=== PATIENT | female | born 1960 | race Caucasian/White ===

== ENCOUNTER 2018-10-18 05:11 | Inpatient (IN) | payer BC ==
[2018-10-18] MEDS: VANCOMYCIN 1 GM 250 ML IVPB (05:00)
[2018-10-18] MEDS: LACTATED RINGER'S 1,000 ML (ENTER RATE) IV* (05:00)
[2018-10-18 06:08] LABS: INR 0.91; PROTIME 12.4 Sec (11.9-14.9)
[2018-10-18 06:09] LABS: PARTIAL THROMBOPLASTIN TIME 30.2 Sec (23.0-35.0)
[2018-10-18] MEDS ORDERED: SEVOFLURANE 15 MIN (07:00)
[2018-10-18] MEDS ORDERED: METOPROLOL 5 MG INJ (07:00)
[2018-10-18] MEDS ORDERED: MIDAZOLAM 1 MG/ML 2 ML INJ (07:32)
[2018-10-18] MEDS ORDERED: hydrALAzine 20 MG INJ (08:13)
[2018-10-18] MEDS ORDERED: morphine 10 MG INJ (08:18)
[2018-10-18] MEDS: BUPIVACAINE 0.25% (MPF) 30 ML INJ (08:20)
[2018-10-18] MEDS: THROMBIN (BOVINE) 5,000 UNIT VIAL TP (08:46)
[2018-10-18] MEDS: POLYMYXIN/BACITRACIN 1L IRRIG (08:46)
[2018-10-18] MEDS: GELATIN SIZE 100 SPONGE (08:46)
[2018-10-18] MEDS ORDERED: ONDANSETRON 4 MG INJ ×2 (09:44→10:45)
[2018-10-18] MEDS ORDERED: METOCLOPRAMIDE 10 MG INJ (09:44)
[2018-10-18] MEDS ORDERED: LIDOCAINE 2% (SDV) 5 ML INJ ×2 (09:45→09:54)
[2018-10-18] MEDS ORDERED: ROCURONIUM 50 MG INJ ×2 (09:45)
[2018-10-18] MEDS ORDERED: ETOMIDATE 20 MG INJ (09:45)
[2018-10-18] MEDS ORDERED: DEXAMETHASONE 4 MG/ML 5 ML INJ (09:47)
[2018-10-18] MEDS ORDERED: NEOSTIGMINE 3 MG/3 ML SYRINGE (09:56)
[2018-10-18] MEDS ORDERED: GLYCOPYRROLATE 0.4 MG INJ (09:56)
[2018-10-18] MEDS ORDERED: FUROSEMIDE 20 MG INJ (10:14)
[2018-10-18] MEDS: DEXTROSE 5%-0.45% NACL 1,000 ML IV ×4 (10:21→23:58)
[2018-10-18] MEDS ORDERED: DIPHENHYDRAMINE 50 MG INJ ×2 (10:27→10:53)
[2018-10-18] MEDS ORDERED: NACL 0.9% 3 ML SYG IV (10:30)
[2018-10-18] MEDS ORDERED: TRIMETHOBENZAMIDE 100 MG/ML VIAL IM (10:30)
[2018-10-18] MEDS ORDERED: AL HYDROX/MG HYDROX/SIMETH 30 ML CUP PO (10:30)
[2018-10-18] MEDS ORDERED: BETHANECHOL 25 MG TAB PO (10:30)
[2018-10-18] MEDS ORDERED: ONDANSETRON 4 MG INJ IV (10:30)
[2018-10-18] MEDS ORDERED: NALOXONE (0.4 MG/ML) INJ IV (10:30)
[2018-10-18] MEDS ORDERED: PROCHLORPERAZINE 10 MG TAB PO (10:30)
[2018-10-18] MEDS ORDERED: DIPHENHYDRAMINE 50 MG CAP PO (10:30)
[2018-10-18] MEDS ORDERED: ACETAMINOPHEN 325 MG TAB PO (10:30)
[2018-10-18] MEDS ORDERED: FENTAnyl 50 MCG/ML VIAL ×2 (10:45→11:29)
[2018-10-18] MEDS ORDERED: hydrALAzine 20 MG INJ IV (11:00)
[2018-10-18] MEDS ORDERED: MEPERIDINE 25 MG INJ IV (11:00)
[2018-10-18] MEDS ORDERED: ALBUTEROL 0.083% (NEB) 2.5 MG/3 ML AMP HHN (11:00)
[2018-10-18] MEDS ORDERED: LABETALOL HCL 20MG INJ IV (11:00)
[2018-10-18] MEDS ORDERED: METOCLOPRAMIDE 10 MG INJ IV (11:00)
[2018-10-18] MEDS ORDERED: HYDROmorphONE 1 MG/5 ML IV SYRINGE IV ×2 (11:00→11:07)
[2018-10-18] MEDS: DIPHENHYDRAMINE 50 MG INJ IV (11:50)
[2018-10-18] MEDS: HYDROmorphONE 1 MG/5 ML IV SYRINGE IV (11:50)
[2018-10-18] MEDS: FENTAnyl 50 MCG/ML VIAL IV (11:52)
[2018-10-18] MEDS: ONDANSETRON 4 MG INJ IV (11:53)
[2018-10-18] MEDS: HYDROmorphONE 0.2 MG/ML PCA IV ×2 (11:58→19:32)
[2018-10-18] MEDS ORDERED: morphine 1 MG/ML 30 ML (PCA) IV (12:00)
[2018-10-18] MEDS: MIDAZOLAM 1 MG/ML 2 ML INJ IV (12:03)
[2018-10-18] MEDS ORDERED: NON-FORMULARY/PATIENT OWN MED (Temazepam* (Restoril*) 15 MG) PO (13:30)
[2018-10-18] MEDS: OXYCODONE/ACETAMINOPHEN (10/325) TAB PO ×2 (15:52→22:33)
[2018-10-18] MEDS: PREGABALIN 75 MG CAP PO (15:52)
[2018-10-18] MEDS: LORAZEPAM 1 MG TAB PO (18:05)
[2018-10-18] MEDS: VANCOMYCIN 1 GM (PMX) 250 ML IVPB (18:05)
[2018-10-18] MEDS: RANITIDINE 150 MG TAB PO (20:15)
[2018-10-18] MEDS ORDERED: PREGABALIN 75 MG CAP PO (21:00)
[2018-10-18] MEDS: ZOLPIDEM 5 MG TAB PO (23:51)
[2018-10-19] MEDS: PREGABALIN 75 MG CAP PO ×4 (01:00→21:39)
[2018-10-19] MEDS: PANTOPRAZOLE (EC) 40 MG TAB PO (05:05)
[2018-10-19] MEDS: VANCOMYCIN 1 GM (PMX) 250 ML IVPB (05:05)
[2018-10-19] MEDS: OXYCODONE/ACETAMINOPHEN (10/325) TAB PO ×4 (05:06→18:35)
[2018-10-19] MEDS: LORAZEPAM 1 MG TAB PO ×3 (05:19→21:29)
[2018-10-19 05:59] LABS: HEMATOCRIT 30.4 % (37.0-47.0); HEMOGLOBIN 9.3 g/dl (12.0-16.0)
[2018-10-19 06:18] LABS: ANION GAP 8 (5-13); BLOOD UREA NITROGEN 15 mg/dl (7-20); CALCIUM 8.6 mg/dl (8.4-10.2); CARBON DIOXIDE 33 mmol/L (21-31); CHLORIDE 97 mmol/L (97-110); CREATININE 0.86 mg/dl (0.44-1.00); Estimated GFR > 60 mL/min (>60); GLUCOSE 85 mg/dl (70-220); POTASSIUM 3.2 mmol/L (3.5-5.1); SODIUM 138 mmol/L (135-144)
[2018-10-19] MEDS: HYDROmorphONE 0.2 MG/ML PCA IV ×3 (06:36→18:45)
[2018-10-19] MEDS ORDERED: BETHANECHOL 25 MG TAB PO (08:00)
[2018-10-19] MEDS ORDERED: UBIDECARENONE 400 MG PO (09:00)
[2018-10-19] MEDS: DOCUSATE SODIUM 100 MG CAP PO ×2 (09:09→21:28)
[2018-10-19] MEDS: CYANOCOBALAMIN 500 MCG TAB PO (09:12)
[2018-10-19] MEDS: FERROUS SULFATE (EC) 325 MG TAB PO ×3 (09:12→21:28)
[2018-10-19] MEDS: RANITIDINE 150 MG TAB PO ×2 (09:13→21:28)
[2018-10-19] MEDS: ASCORBIC ACID 500 MG TAB PO ×2 (09:14→21:29)
[2018-10-19] MEDS: VITAMIN B COMPLEX/VIT C CAP PO (09:16)
[2018-10-19] MEDS: POTASSIUM CHLORIDE 30 MEQ in SOD CHLORIDE 0.45% 1,000 ML IV ×3 (12:09→21:41)
[2018-10-19] MEDS: DEXTROSE 5%-0.45% NACL 1,000 ML IV (16:21)
[2018-10-19] MEDS: ZOLPIDEM 5 MG TAB PO (23:21)
[2018-10-20] MEDS: DEXTROSE 5%-0.45% NACL 1,000 ML IV ×2 (02:21→12:21)
[2018-10-20 05:14] LABS: ADD MAN DIFF? NO
[2018-10-20 05:15] LABS: BASOPHILS % 0.5 % (0.0-2.0); EOSINOPHILS # 0.3 10^3/ul (0.0-0.5); EOSINOPHILS % 5.3 % (0.0-7.0); HEMOGLOBIN 8.4 g/dl (12.0-16.0); LYMPHOCYTES # 1.6 10^3/ul (0.8-2.9); LYMPHOCYTES % 27.9 % (15.0-51.0); MEAN CORPUSCULAR HEMOGLOBIN 23.1 pg (29.0-33.0); MEAN CORPUSCULAR VOLUME 79.7 fl (82.0-101.0); MEAN PLATELET VOLUME 10.2 fl (7.4-10.4); MONOCYTES % 17.2 % (0.0-11.0); NEUTROPHIL # 2.8 10^3/ul (1.6-7.5); NEUTROPHILS % 48.9 % (39.0-77.0); PLATELET COUNT 174 10^3/UL (140-415); RED BLOOD COUNT 3.64 10^6/ul (4.20-5.40); RED CELL DISTRIBUTION WIDTH 18.5 % (11.5-14.5)
[2018-10-20 05:15] LABS: WHITE BLOOD COUNT 5.8 10^3/ul (4.8-10.8)
[2018-10-20 05:33] LABS: ANION GAP 10 (5-13); BLOOD UREA NITROGEN 9 mg/dl (7-20); CALCIUM 9.1 mg/dl (8.4-10.2); CARBON DIOXIDE 33 mmol/L (21-31); CHLORIDE 98 mmol/L (97-110); CREATININE 0.72 mg/dl (0.44-1.00); Estimated GFR > 60 mL/min (>60); GLUCOSE 86 mg/dl (70-220); POTASSIUM 4.4 mmol/L (3.5-5.1); SODIUM 141 mmol/L (135-144)
[2018-10-20] MEDS: PANTOPRAZOLE (EC) 40 MG TAB PO (05:41)
[2018-10-20] MEDS: POTASSIUM CHLORIDE 30 MEQ in SOD CHLORIDE 0.45% 1,000 ML IV (05:45)
[2018-10-20] MEDS: CEPASTAT LOZENGE MT (05:48)
[2018-10-20] MEDS: OXYCODONE/ACETAMINOPHEN (10/325) TAB PO ×4 (05:48→21:18)
[2018-10-20] MEDS: LORAZEPAM 1 MG TAB PO ×2 (06:51→17:13)
[2018-10-20] MEDS: HYDROmorphONE 0.2 MG/ML PCA IV ×2 (06:53→14:47)
[2018-10-20] MEDS: CYANOCOBALAMIN 500 MCG TAB PO (09:45)
[2018-10-20] MEDS: DOCUSATE SODIUM 100 MG CAP PO ×2 (09:45→20:52)
[2018-10-20] MEDS: VITAMIN B COMPLEX/VIT C CAP PO (09:45)
[2018-10-20] MEDS: FERROUS SULFATE (EC) 325 MG TAB PO ×3 (09:46→20:52)
[2018-10-20] MEDS: ASCORBIC ACID 500 MG TAB PO ×2 (09:46→20:52)
[2018-10-20] MEDS: RANITIDINE 150 MG TAB PO ×2 (09:46→20:52)
[2018-10-20] MEDS: PREGABALIN 75 MG CAP PO ×2 (10:23→20:53)
[2018-10-20] MEDS: POTASSIUM CHLORIDE 30 MEQ in DEXTROSE 5% 1,000 ML IV (17:30)
[2018-10-20] MEDS: ZOLPIDEM 5 MG TAB PO (22:10)
[2018-10-21] MEDS: HYDROmorphONE 0.2 MG/ML PCA IV ×3 (00:26→19:13)
[2018-10-21] MEDS: POTASSIUM CHLORIDE 30 MEQ in DEXTROSE 5% 1,000 ML IV ×3 (00:30→21:44)
[2018-10-21] MEDS: LORAZEPAM 1 MG TAB PO ×3 (02:11→18:18)
[2018-10-21] MEDS: OXYCODONE/ACETAMINOPHEN (10/325) TAB PO ×4 (02:44→21:36)
[2018-10-21 05:11] LABS: ADD MAN DIFF? NO
[2018-10-21 05:16] LABS: BASOPHILS % 0.3 % (0.0-2.0); EOSINOPHILS # 0.6 10^3/ul (0.0-0.5); EOSINOPHILS % 7.2 % (0.0-7.0); HEMATOCRIT 30.2 % (37.0-47.0); HEMOGLOBIN 8.8 g/dl (12.0-16.0); LYMPHOCYTES # 1.5 10^3/ul (0.8-2.9); LYMPHOCYTES % 19.2 % (15.0-51.0); MEAN CORPUSCULAR HEMOGLOBIN 22.8 pg (29.0-33.0); MEAN CORPUSCULAR HGB CONC 29.1 g/dl (32.0-37.0); MEAN CORPUSCULAR VOLUME 78.2 fl (82.0-101.0); MEAN PLATELET VOLUME 10.5 fl (7.4-10.4); MONOCYTES % 13.1 % (0.0-11.0); NEUTROPHIL # 4.7 10^3/ul (1.6-7.5); NEUTROPHILS % 59.8 % (39.0-77.0); PLATELET COUNT 199 10^3/UL (140-415); RED BLOOD COUNT 3.86 10^6/ul (4.20-5.40); RED CELL DISTRIBUTION WIDTH 18.2 % (11.5-14.5)
[2018-10-21 05:16] LABS: WHITE BLOOD COUNT 7.9 10^3/ul (4.8-10.8)
[2018-10-21 05:31] LABS: ANION GAP 7 (5-13); BLOOD UREA NITROGEN 9 mg/dl (7-20); CALCIUM 9.3 mg/dl (8.4-10.2); CARBON DIOXIDE 34 mmol/L (21-31); CHLORIDE 97 mmol/L (97-110); CREATININE 0.69 mg/dl (0.44-1.00); Estimated GFR > 60 mL/min (>60); GLUCOSE 126 mg/dl (70-220); POTASSIUM 4.5 mmol/L (3.5-5.1); SODIUM 138 mmol/L (135-144)
[2018-10-21] MEDS: PANTOPRAZOLE (EC) 40 MG TAB PO (06:41)
[2018-10-21] MEDS: RANITIDINE 150 MG TAB PO ×2 (08:47→21:37)
[2018-10-21] MEDS: VITAMIN B COMPLEX/VIT C CAP PO (08:47)
[2018-10-21] MEDS: DOCUSATE SODIUM 100 MG CAP PO ×2 (08:47→21:37)
[2018-10-21] MEDS: FERROUS SULFATE (EC) 325 MG TAB PO ×3 (08:48→21:37)
[2018-10-21] MEDS: CYANOCOBALAMIN 500 MCG TAB PO (08:48)
[2018-10-21] MEDS: PREGABALIN 75 MG CAP PO ×2 (08:51→21:37)
[2018-10-21] MEDS: ASCORBIC ACID 500 MG TAB PO ×2 (08:51→21:45)
[2018-10-21] MEDS: ZOLPIDEM 5 MG TAB PO (23:39)
[2018-10-22] MEDS: OXYCODONE/ACETAMINOPHEN (10/325) TAB PO ×4 (04:34→23:43)
[2018-10-22 06:18] LABS: HEMATOCRIT 32.4 % (37.0-47.0); HEMOGLOBIN 9.6 g/dl (12.0-16.0)
[2018-10-22] MEDS: PANTOPRAZOLE (EC) 40 MG TAB PO (06:24)
[2018-10-22] MEDS: LORAZEPAM 1 MG TAB PO ×2 (06:24→16:26)
[2018-10-22 07:18] LABS: ANION GAP 7 (5-13); BLOOD UREA NITROGEN 8 mg/dl (7-20); CALCIUM 9.6 mg/dl (8.4-10.2); CARBON DIOXIDE 35 mmol/L (21-31); CHLORIDE 94 mmol/L (97-110); CREATININE 0.68 mg/dl (0.44-1.00); Estimated GFR > 60 mL/min (>60); GLUCOSE 102 mg/dl (70-220); POTASSIUM 4.5 mmol/L (3.5-5.1); SODIUM 136 mmol/L (135-144)
[2018-10-22] MEDS: ASCORBIC ACID 500 MG TAB PO ×2 (08:44→20:49)
[2018-10-22] MEDS: FERROUS SULFATE (EC) 325 MG TAB PO ×3 (08:44→20:49)
[2018-10-22] MEDS: VITAMIN B COMPLEX/VIT C CAP PO (08:44)
[2018-10-22] MEDS: CYANOCOBALAMIN 500 MCG TAB PO (08:45)
[2018-10-22] MEDS: DOCUSATE SODIUM 100 MG CAP PO ×2 (08:45→20:48)
[2018-10-22] MEDS: RANITIDINE 150 MG TAB PO ×2 (08:45→20:49)
[2018-10-22] MEDS: morphine (ER) 15 MG TAB PO ×2 (08:46→11:37)
[2018-10-22] MEDS: PREGABALIN 75 MG CAP PO ×2 (08:48→20:49)
[2018-10-22] MEDS: POTASSIUM CHLORIDE 30 MEQ in DEXTROSE 5% 1,000 ML IV (09:42)
[2018-10-22] MEDS: morphine (ER) 30 MG TAB PO (20:49)
[2018-10-22] MEDS: ZOLPIDEM 5 MG TAB PO (21:57)
[2018-10-23] MEDS: PANTOPRAZOLE (EC) 40 MG TAB PO (06:15)
[2018-10-23] MEDS: OXYCODONE/ACETAMINOPHEN (10/325) TAB PO ×2 (06:16→11:02)
[2018-10-23] MEDS: PREGABALIN 75 MG CAP PO (08:18)
[2018-10-23] MEDS: RANITIDINE 150 MG TAB PO (08:18)
[2018-10-23] MEDS: VITAMIN B COMPLEX/VIT C CAP PO (08:18)
[2018-10-23] MEDS: CYANOCOBALAMIN 500 MCG TAB PO (08:18)
[2018-10-23] MEDS: morphine (ER) 30 MG TAB PO (08:18)
[2018-10-23] MEDS: DOCUSATE SODIUM 100 MG CAP PO (08:19)
[2018-10-23] MEDS: FERROUS SULFATE (EC) 325 MG TAB PO (08:19)
[2018-10-23] MEDS: ASCORBIC ACID 500 MG TAB PO (08:19)
== END 2018-10-23 11:40 | disposition home or self-care (01) | DRG 30 ==
LOC: REC 05:11 → MS1 12:49
PROC: 00BX0ZX Excision of Thoracic Spinal Cord, Open Approach, Diagnostic (ICD-10-PCS; principal; 2018-10-18 07:08)
PROC: 00NX0ZZ Release Thoracic Spinal Cord, Open Approach (ICD-10-PCS; 2018-10-18 07:08)
PROC: 4A11X4G Monitoring of Peripheral Nervous Electrical Activity, Intraoperative, External Approach (ICD-10-PCS; 2018-10-18 07:08)
DX: G06.1 Intraspinal abscess and granuloma (principal); E87.6 Hypokalemia; F41.9 Anxiety disorder, unspecified; G89.4 Chronic pain syndrome; L40.50 Arthropathic psoriasis, unspecified; M32.9 Systemic lupus erythematosus, unspecified; M79.7 Fibromyalgia
CPT/HCPCS: 72020; 80048; 85014; 85018; 85025; 85610; 85730; 86850; 86900; 86901; 86920; 87086; 88305; 88311; 88331; 97110; 97116; 97161; 97530

== ENCOUNTER 2018-10-28 15:23 | Observation (INO) | payer BC ==
[2018-10-28] MEDS: DIAZEPAM 5 MG/ML SYG IV ×2 (15:37→20:31)
[2018-10-28 15:39] LABS: ADD MAN DIFF? NO
[2018-10-28 15:44] LABS: BASOPHIL # 0.1 10^3/ul (0.0-0.1); BASOPHILS % 0.5 % (0.0-2.0); EOSINOPHILS # 0.4 10^3/ul (0.0-0.5); EOSINOPHILS % 2.6 % (0.0-7.0); HEMATOCRIT 39.1 % (37.0-47.0); HEMOGLOBIN 11.6 g/dl (12.0-16.0); LYMPHOCYTES # 4.8 10^3/ul (0.8-2.9); LYMPHOCYTES % 35.4 % (15.0-51.0); MEAN CORPUSCULAR HEMOGLOBIN 23.4 pg (29.0-33.0); MEAN CORPUSCULAR HGB CONC 29.7 g/dl (32.0-37.0); MEAN CORPUSCULAR VOLUME 78.8 fl (82.0-101.0); MEAN PLATELET VOLUME 9.8 fl (7.4-10.4); MONOCYTE # 1.3 10^3/ul (0.3-0.9); MONOCYTES % 9.2 % (0.0-11.0); NEUTROPHIL # 7.1 10^3/ul (1.6-7.5); NEUTROPHILS % 51.9 % (39.0-77.0); PLATELET COUNT 550 10^3/UL (140-415); RED BLOOD COUNT 4.96 10^6/ul (4.20-5.40); RED CELL DISTRIBUTION WIDTH 19.2 % (11.5-14.5)
[2018-10-28 15:44] LABS: WHITE BLOOD COUNT 13.6 10^3/ul (4.8-10.8)
[2018-10-28 16:01] LABS: ALANINE AMINOTRANSFERASE 21 IU/L (13-69); ALBUMIN 5.1 g/dl (3.3-4.9); ALBUMIN/GLOBULIN RATIO 1.27; ALKALINE PHOSPHATASE 120 IU/L (42-121); ANION GAP 21 (5-13); ASPARTATE AMINO TRANSFERASE 38 IU/L (15-46); BILIRUBIN,INDIRECT 0.1 mg/dl (0-1.1); BILIRUBIN,TOTAL 0.1 mg/dl (0.2-1.3); BLOOD UREA NITROGEN 12 mg/dl (7-20); CALCIUM 10.7 mg/dl (8.4-10.2); CARBON DIOXIDE 23 mmol/L (21-31); CHLORIDE 99 mmol/L (97-110); CREATININE 0.98 mg/dl (0.44-1.00); Estimated GFR 58 mL/min (>60); GLUCOSE 205 mg/dl (70-220); POTASSIUM 3.7 mmol/L (3.5-5.1); SODIUM 143 mmol/L (135-144); TOTAL PROTEIN 9.1 g/dl (6.1-8.1)
[2018-10-28 16:04] LABS: PROTIME 12.3 Sec (11.9-14.9)
[2018-10-28 16:05] LABS: PARTIAL THROMBOPLASTIN TIME 26.4 Sec (23.0-35.0)
[2018-10-28] MEDS ORDERED: HYDROmorphONE 1 MG/ML SYG (16:15)
[2018-10-28] MEDS: HYDROmorphONE 0.5 MG/0.5 ML SYG IV (16:16)
[2018-10-28] MEDS: MIDAZOLAM 1 MG/ML 2 ML INJ IV (16:54)
[2018-10-28] MEDS ORDERED: ACETAMINOPHEN 325 MG TAB PO (17:00)
[2018-10-28] MEDS ORDERED: ONDANSETRON 4 MG INJ IV (17:00)
[2018-10-28] MEDS: HYDROmorphONE 2 MG/ML SYG IV ×2 (17:25→19:29)
[2018-10-28] MEDS: LABETALOL HCL 20MG INJ IV (18:07)
[2018-10-28] MEDS: BACLOFEN 10 MG TAB PO ×2 (18:47→20:28)
[2018-10-28] MEDS ORDERED: ZOLPIDEM 5 MG TAB PO (20:30)
[2018-10-28] MEDS: LACTATED RINGER'S 1,000 ML IV (20:55)
[2018-10-28] MEDS ORDERED: BACLOFEN 10 MG TAB NGT (21:00)
[2018-10-28] MEDS ORDERED: ONDANSETRON 4 MG INJ (21:53)
[2018-10-28] MEDS ORDERED: MIDAZOLAM 1 MG/ML 2 ML INJ (21:53)
[2018-10-28] MEDS ORDERED: PROPOFOL 100 ML (21:53)
[2018-10-28] MEDS ORDERED: PHENYLephrine (100 MCG/ML) 5ML SYG (21:54)
[2018-10-28] MEDS ORDERED: LORAZEPAM 2 MG INJ IV (22:00)
[2018-10-29] MEDS: OXYMETAZOLINE 0.05% 15 ML NAS SPRAY NASAL ×3 (01:00→21:24)
[2018-10-29] MEDS ORDERED: DOCUSATE SODIUM 100 MG CAP PO (02:00)
[2018-10-29] MEDS ORDERED: HYDROCODONE/APAP (10/325) TAB PO (02:00)
[2018-10-29] MEDS ORDERED: ONDANSETRON 4 MG TAB PO (02:00)
[2018-10-29] MEDS ORDERED: NON-FORMULARY/PATIENT OWN MED (Temazepam* (Restoril*) 15 MG) PO (02:00)
[2018-10-29] MEDS ORDERED: NACL 0.9% 3 ML SYG IV (02:00)
[2018-10-29] MEDS: DIAZEPAM 5 MG TAB PO (04:30)
[2018-10-29] MEDS: morphine 2 MG INJ IV ×3 (04:31→19:36)
[2018-10-29] MEDS: PANTOPRAZOLE (EC) 40 MG TAB PO (05:12)
[2018-10-29 05:16] LABS: ADD MAN DIFF? NO
[2018-10-29 05:19] LABS: WHITE BLOOD COUNT 8.1 10^3/ul (4.8-10.8)
[2018-10-29 05:19] LABS: ABNORMAL IP MESSAGE 1; BASOPHILS % 0.2 % (0.0-2.0); EOSINOPHILS # 0.1 10^3/ul (0.0-0.5); EOSINOPHILS % 0.7 % (0.0-7.0); HEMATOCRIT 33.3 % (37.0-47.0); HEMOGLOBIN 9.6 g/dl (12.0-16.0); LYMPHOCYTES # 1.5 10^3/ul (0.8-2.9); MEAN CORPUSCULAR HEMOGLOBIN 23.4 pg (29.0-33.0); MEAN CORPUSCULAR HGB CONC 28.8 g/dl (32.0-37.0); MEAN CORPUSCULAR VOLUME 81.2 fl (82.0-101.0); MEAN PLATELET VOLUME 10.2 fl (7.4-10.4); MONOCYTE # 1.3 10^3/ul (0.3-0.9); MONOCYTES % 15.5 % (0.0-11.0); NEUTROPHIL # 5.2 10^3/ul (1.6-7.5); NEUTROPHILS % 64.1 % (39.0-77.0); PLATELET COUNT 347 10^3/UL (140-415); RED CELL DISTRIBUTION WIDTH 19.4 % (11.5-14.5)
[2018-10-29 05:22] LABS: POSITIVE DIFF @See below
[2018-10-29] MEDS: FAMOTIDINE 20 MG TAB PO ×2 (08:37→21:23)
[2018-10-29] MEDS: BACLOFEN 10 MG TAB PO ×3 (08:37→21:23)
[2018-10-29] MEDS: PREGABALIN 75 MG CAP PO ×2 (08:37→21:23)
[2018-10-29] MEDS: VITAMIN B COMPLEX/VIT C CAP PO (08:37)
[2018-10-29] MEDS: CYANOCOBALAMIN 500 MCG TAB PO (08:37)
[2018-10-29] MEDS ORDERED: UBIDECARENONE 400 MG PO (09:00)
[2018-10-29] MEDS ORDERED: NON-FORMULARY/PATIENT OWN MED (Esomeprazole Mag Trihydrate (Nexium) 20 MG) PO (09:00)
[2018-10-29] MEDS: OXYCODONE/ACETAMINOPHEN (5/325) TAB PO ×2 (12:23→20:28)
[2018-10-29 13:05] LABS: ADD UMIC YES; UR ASCORBIC ACID 40 mg/dL (NEGATIVE); UR BACTERIA FEW /HPF (NONE SEEN); UR BILIRUBIN (Dip) NEGATIVE (NEGATIVE); UR BLOOD (Dip) NEGATIVE (NEGATIVE); UR CLARITY SLIGHTLY CLOUDY (CLEAR); UR COLOR YELLOW (YELLOW); UR GLUCOSE (Dip) NEGATIVE (NEGATIVE); UR KETONES (Dip) TRACE mg/dL (NEGATIVE); UR LEUKOCYTE ESTERASE (Dip) TRACE Leu/ul (NEGATIVE); UR MUCUS FEW /HPF (NONE SEEN); UR NITRITE (Dip) NEGATIVE (NEGATIVE); UR RBC 3 /HPF (0-5); UR SPECIFIC GRAVITY (Dip) 1.046 (1.003-1.030); UR TOTAL PROTEIN (Dip) 1+ mg/dl (NEGATIVE); UR UROBILINOGEN (Dip) NEGATIVE (NEGATIVE); UR WBC 8 /HPF (0-5)
[2018-10-30] MEDS: OXYCODONE/ACETAMINOPHEN (5/325) TAB PO ×2 (03:09→08:58)
[2018-10-30] MEDS: DIAZEPAM 5 MG TAB PO ×2 (04:11→14:13)
[2018-10-30 05:05] LABS: ADD MAN DIFF? NO
[2018-10-30 05:17] LABS: WHITE BLOOD COUNT 5.5 10^3/ul (4.8-10.8)
[2018-10-30 05:17] LABS: BASOPHILS % 0.4 % (0.0-2.0); EOSINOPHILS # 0.2 10^3/ul (0.0-0.5); EOSINOPHILS % 4.2 % (0.0-7.0); HEMOGLOBIN 8.6 g/dl (12.0-16.0); LYMPHOCYTES # 1.1 10^3/ul (0.8-2.9); LYMPHOCYTES % 19.2 % (15.0-51.0); MEAN CORPUSCULAR HEMOGLOBIN 23.8 pg (29.0-33.0); MEAN CORPUSCULAR HGB CONC 29.7 g/dl (32.0-37.0); MEAN CORPUSCULAR VOLUME 80.3 fl (82.0-101.0); MEAN PLATELET VOLUME 10.4 fl (7.4-10.4); MONOCYTE # 0.8 10^3/ul (0.3-0.9); MONOCYTES % 14.1 % (0.0-11.0); NEUTROPHIL # 3.4 10^3/ul (1.6-7.5); NEUTROPHILS % 61.7 % (39.0-77.0); PLATELET COUNT 247 10^3/UL (140-415); RED BLOOD COUNT 3.61 10^6/ul (4.20-5.40); RED CELL DISTRIBUTION WIDTH 19.6 % (11.5-14.5)
[2018-10-30 05:21] LABS: HEMOGLOBIN A1C 5.8 % (0-5.9)
[2018-10-30 05:40] LABS: ALANINE AMINOTRANSFERASE 32 IU/L (13-69); ALBUMIN 3.8 g/dl (3.3-4.9); ALBUMIN/GLOBULIN RATIO 1.31; ALKALINE PHOSPHATASE 75 IU/L (42-121); ANION GAP 9 (5-13); ASPARTATE AMINO TRANSFERASE 93 IU/L (15-46); BILIRUBIN,INDIRECT 0.2 mg/dl (0-1.1); BILIRUBIN,TOTAL 0.2 mg/dl (0.2-1.3); BLOOD UREA NITROGEN 10 mg/dl (7-20); CALCIUM 9.7 mg/dl (8.4-10.2); CARBON DIOXIDE 29 mmol/L (21-31); CHLORIDE 101 mmol/L (97-110); CREATININE 0.71 mg/dl (0.44-1.00); Estimated GFR > 60 mL/min (>60); GLUCOSE 98 mg/dl (70-220); SODIUM 139 mmol/L (135-144); TOTAL PROTEIN 6.7 g/dl (6.1-8.1)
[2018-10-30] MEDS: PANTOPRAZOLE (EC) 40 MG TAB PO (05:57)
[2018-10-30] MEDS: PREGABALIN 75 MG CAP PO (08:53)
[2018-10-30] MEDS: FAMOTIDINE 20 MG TAB PO (08:53)
[2018-10-30] MEDS: CYANOCOBALAMIN 500 MCG TAB PO (08:59)
[2018-10-30] MEDS: OXYMETAZOLINE 0.05% 15 ML NAS SPRAY NASAL (08:59)
[2018-10-30] MEDS: BACLOFEN 10 MG TAB PO ×2 (08:59→12:29)
[2018-10-30] MEDS: VITAMIN B COMPLEX/VIT C CAP PO (08:59)
[2018-10-30] MEDS ORDERED: DIPHENOXYLATE/ATROPINE TAB PO (10:30)
[2018-10-30] MEDS: FERROUS SULFATE (EC) 325 MG TAB PO (12:29)
[2018-10-30] MEDS: morphine 2 MG INJ IV (14:01)
== END 2018-10-30 15:20 | disposition home or self-care (01) ==
LOC: E/R 15:23 → MS1 16:34
DX: G89.4 Chronic pain syndrome (principal); M79.604 Pain in right leg; M79.605 Pain in left leg; M32.9 Systemic lupus erythematosus, unspecified; R32 Unspecified urinary incontinence; R19.7 Diarrhea, unspecified; D64.9 Anemia, unspecified; K21.9 Gastro-esophageal reflux disease without esophagitis
CPT/HCPCS: 36415; 72157; 72158; 75635; 80053; 81001; 83036; 85025; 85610; 85730; 87081; 87086; 96374; 97110; 97116; 97161; 97530; 99285-25